=== PATIENT | female | born 1980 | race Caucasian/White ===

== ENCOUNTER 2022-05-01 15:47 | Outpatient (CLI) | payer OTHER, SELFPAY ==
[2022-05-01 19:13] LABS: HIV 1/2/P24 Combo Screen* Negative (Negative)
[2022-05-01 20:01] LABS: Chlamydia DNA Amplified* NOT DETECTED (No Detected); GC DNA Amplified* NOT DETECTED (No Detected)
[2022-05-03 23:48] LABS: Rapid Plasma Reagin (RPR) Non Reactive (Non Reactive)
== END 2022-05-01 15:48 | disposition home or self-care (01) ==
PROVIDERS: PCP Internal Medicine; Visit Provider Internal Medicine
DX: Z11.3 Encounter for screening for infections with a predominantly sexual mode of transmission (principal)
CPT/HCPCS: 86592; 86703; 87491; 87591

== ENCOUNTER 2022-05-10 08:57 | Outpatient (CLI) | payer OTHER, SELFPAY ==
--- NOTE | 2022-05-10 09:00 | CRLHL7_ITS ---
For Patients: As a result of the Century Cures Act, medical imaging exams and procedure reports are released immediately into your electronic medical record. You may view this report before your referring provider. If you have questions, please contact your health care provider. INDICATION: Left facial swelling. Left facial asymmetry. TECHNIQUE: CT of the face without contrast. Coronal reconstructions are included. COMPARISON: None. FINDINGS: No acute osseous abnormalities. Moderate right maxillary sinus mucosal thickening. High-grade left maxillary sinus mucosal thickening and air-fluid level. Obstruction of the bilateral maxillary sinus ostia. Remaining paranasal sinuses are well aerated. Moderate leftward anterior nasal septal deviation and septal spur. No obstructive lesion within the nasal cavity. No mass or other soft tissue lesion within the imaged facial/scalp regions. Small well corticated ossicle within the subcutaneous soft tissues overlying the left temporalis muscle, series 3 slice 108. The orbital contents including the globes and extraocular muscles are normal in appearance. The imaged intracranial contents are within normal limits. IMPRESSION: 1. No mass or lymphadenopathy within the neck. No acute osseous abnormalities. 2. Small well corticated ossicle within the subcutaneous soft tissues overlying the left temporalis muscle. This could reflect heterotopic ossification from prior trauma or a phlebolith associated with a vascular structure. 3. Left greater than right maxillary sinus opacification with obstruction of both maxillary sinus ostia. Correlate for clinical symptoms of sinusitis. Please note that all CT scans at this facility use dose modulation, iterative reconstruction, and/or weight-based dosing when appropriate to reduce radiation dose to as low as reasonably achievable. Dictated by Richard Blackwell MD @ 05/10/2022 3:52:53 PM (Electronically Signed)
== END 2022-05-10 08:58 | disposition home or self-care (01) ==
LOC: CT 08:58
PROVIDERS: PCP Internal Medicine; Visit Provider Internal Medicine
DX: R22.0 Localized swelling, mass and lump, head (principal); J32.0 Chronic maxillary sinusitis
CPT/HCPCS: 70486

== ENCOUNTER 2023-11-27 15:07 | Outpatient (CLI) | payer BC, SELFPAY ==
--- OUTSIDE RECORDS SUMMARY | 2023-11-27 15:09 | XMS_ITS | Clinical Summary ---
Author Organization [facility] Address [place], [place] [address] Care Team Providers Care Operations Officer Name Role Phone Unavailable Primary Care Provider Unavailabl e Allergies Active Allergy Reactions Criticality Noted Date Comments Cefazolin 07/08/2007 Codeine 09/06/2007 Sick to stomach Medications No known medications Active Problems Problem Noted Date Diagnosed Date Trigger thumb of right hand 09/07/2014 Immunizations Name Administration Dates Next Due Td (Age >=7 Years) 10/09/2005 Family History Medical History Relation Name Comments Hyperlipidemia Father Good Health Mother Cancer-breast Other No family hx Cancer-colon Other No family hx Diabetes Paternal Grandfather Relation Name Status Comments Father Mother Other Paternal Grandfather Social History Tobacco Use Types Packs/Day Years Used Date Smoking Tobacco: Never Smokeless Tobacco: Never Tobacco Cessation:Counseling Given: Yes Alcohol Use Standard Drinks/Week Comments No 0 (1 standard drink = 0.6 oz pur e alcohol) Sex and Gender Information Value Date Recorded Sex Assigned at Not on file Gender Identity Not on file Sexual Orientation Not on file Obstetrics History Last Filed Vital Signs Vital Sign Reading Time Taken Comments Blood Pressure 116/71 01/06/2015 6:57 PM CDT Pulse 104 01/06/2015 6:57 PM CDT Temperature 36 ??C (96.8 ??F) 01/06/2015 6:57 PM CDT Respiratory Rate - - Oxygen Saturation 99% 01/06/2015 6:57 PM CDT Inhaled Oxygen Concentration - - Weight 62.9 kg (138 lb 9.6 oz) 01/06/2015 6:57 P M CDT Height 162.6 cm (5' 4.02) 10/23/2014 12:01 PM C DT Body Mass Index 23.78 10/23/2014 12:01 PM CDT Plan of Treatment Health Maintenance Due Date Last Done Comments Tdap 01/15/1992 Depression screening for age 12+ 1993 HIV for age 15-65 01/15/1996 BMI (ht and wt on same day) for age 18+ 1999 Hepatitis C screening for age 18-79 1999 Tetanus booster 10/10/2015 10/09/2005 COVID-19 vaccine series (2022-24 season) 2023 Influenza for age 9-49 02/10/2024 Pap test for age 21-65 06/26/2025 3, 06/26/2022, 07/20/2016, Additional history exists Pneumococcal series for age 6-64 Aged Out No longer eligible based on patient's age to complete this topic Procedures Procedure Name Priority Date/Time Associated Diagnosis Comments HPV THIN PREP Routine 06/26/2022 4:00 PM SLAB INSTALLER from Last 3 Months or Most Recently Relevant to Health Maintenance Results * HPV HIGH RISK (06/26/2022 4:00 PM SLAB INSTALLER) TYPE 16 Negative Negative 06/29/2022 4:58 PM SLAB INSTALLER [facility] TYPE 18 Negative Negative 06/29/2022 4:58 PM SLAB INSTALLER [facility] OTHER HIGH RISK TYPES Negative Negative 06/29/2022 4:58 PM SLAB INSTALLER [facility] Other (Cervical) 06/26/2022 4:00 PM SLAB INSTALLER 06/28/2022 9:35 AM SLAB INSTALLER Narrative [facility] - 06/29/2022 4:58 PM SLAB INSTALLER HPV types 16, 18, 31, 33, 35, 39, 45, 51, 52, 56, 58, 59, 66 and 68 DNA were undetectable or below the pre-set threshold. Methodology: Abimael Di 4800 HPV Test September Junito [facility] [address] [place] [address], from Last 3 Months or Most Recently Relevant to Health Maintenance
--- NOTE | 2023-11-27 15:20 | CRLHL7_ITS ---
For Patients: As a result of the Century Cures Act, medical imaging exams and procedure reports are released immediately into your electronic medical record. You may view this report before your referring provider. If you have questions, please contact your health care provider. BILATERAL DIGITAL SCREENING MAMMOGRAM WITH COMPUTER-AIDED DETECTION AND TOMOSYNTHESIS CLINICAL HISTORY: Routine screening exam. COMPARISON: 08/02/2021. TECHNIQUE: Digital mammogram in CC and MLO projections including computer-aided detection (CAD). Tomosynthesis was used in this interpretation. BREAST COMPOSITION: The breasts are heterogeneously dense, which may obscure small masses. FINDINGS: RIGHT Breast: Nodular density in the upper outer quadrant 6 cm from the nipple, probable cyst. LEFT Breast: No suspicious findings. IMPRESSION: RIGHT breast asymmetry/mass. RECOMMENDATIONS: Additional mammographic views of the RIGHT breast including 3D spot compression CC/MLO. RIGHT breast ultrasound may also be required. BI-RADS Category 0: Incomplete: Need Additional Imaging Evaluation and/or Prior Mammograms for Comparison [facility] will contact the patient for follow-up. A lay language report of this examination will be provided to the patient. Dictated by Raul Small MD @ 11/28/2023 12:58:30 PM dora/Dictated by: Raul Small MD @ 11/28/2023 12:58:00 PM (Electronically Signed)
== END 2023-11-27 15:08 | disposition home or self-care (01) ==
LOC: MAMMO 15:08
PROVIDERS: PCP Internal Medicine; Visit Provider Internal Medicine
DX: Z12.31 Encounter for screening mammogram for malignant neoplasm of breast (principal); N63.10 Unspecified lump in the right breast, unspecified quadrant; R92.2 Inconclusive mammogram
CPT/HCPCS: 77063; 77067

== ENCOUNTER 2023-12-10 08:45 | Outpatient (CLI) | payer BC, SELFPAY ==
--- NOTE | 2023-12-10 08:45 | CRLHL7_ITS ---
For Patients: As a result of the Cures Act, medical imaging exams and procedure reports are released immediately into your electronic medical record. You may view this report before your referring provider. If you have questions, please contact your health care provider. DIGITAL DIAGNOSTIC RIGHT MAMMOGRAM PERFORMED WITH TOMOSYNTHESIS AND COMPUTER-AIDED DETECTION RIGHT BREAST ULTRASOUND CLINICAL HISTORY: RIGHT breast mass/asymmetry. COMPARISON: 08/02/2021, 11/27/2023. TECHNIQUE: Digital RIGHT mammogram in two projections with computer-aided detection. Tomosynthesis was used in this interpretation. Real-time ultrasound imaging of RIGHT breast with imaging documentation. BREAST COMPOSITION: The breast is heterogeneously dense, which may obscure small masses. FINDINGS: 3D spot compression CC/MLO RIGHT breast mammogram images submitted. Persistent nodular density within the upper outer quadrant. No architectural distortion. No suspicious calcifications. Targeted RIGHT breast ultrasound performed at 10 o`clock 6 cm from the nipple. Simple anechoic cyst is present at mid depth measuring 17 x 9 x 16 millimeters. IMPRESSION: Simple cyst RIGHT breast 10 o`clock 6 cm from the nipple measuring 1.7 cm. No suspicious findings. RECOMMENDATIONS: Annual BILATERAL screening mammography. Results and recommendations discussed with the patient. BI-RADS Category 2: Benign A lay language report of this examination will be provided to the patient. Dictated by Raul Small MD @ 12/10/2023 9:36:13 AM /Dictated by: Raul Small MD @ 12/10/2023 9:36:00 AM (Electronically Signed)
--- OUTSIDE RECORDS SUMMARY | 2023-12-10 08:47 | XMS_ITS | Clinical Summary ---
Author Organization [employer] [facility] Address [place], [place] [address] Care Team Providers Care Biomedical Instrument Technician Name Role Phone Unavailable Primary Care Provider [...] HPV THIN PREP Routine 06/26/2022 4:00 PM BOLOGNA MAKER from Last 3 Months or Most Recently Relevant to Health Maintenance Results * HPV HIGH RISK (06/26/2022 4:00 PM BOLOGNA MAKER) TYPE 16 Negative Negative 06/29/2022 4:58 PM BOLOGNA MAKER [facility] TYPE 18 Negative Negative 06/29/2022 4:58 PM BOLOGNA MAKER [facility] OTHER HIGH RISK TYPES Negative Negative 06/29/2022 4:58 PM BOLOGNA MAKER [facility] Other (Cervical) 06/26/2022 4:00 PM BOLOGNA MAKER 06/28/2022 9:35 AM BOLOGNA MAKER Narrative [facility] - 06/29/2022 4:58 PM BOLOGNA MAKER HPV types 16, 18, 31, 33, 35, 39, 45, 51, 52, 56, 58, 59, 66 and 68 DNA were undetectable or below the pre-set threshold. Methodology: Abimael Di 4800 HPV Test September Junito [facility] [address] [place] [address], from Last 3 Months or Most Recently Relevant to Health Maintenance
--- NOTE | 2023-12-10 09:15 | CRLHL7_ITS ---
For Patients: As a result of the Cures Act, medical imaging exams and procedure reports are released immediately into your electronic medical record. You may view this report before your referring provider. If you have questions, please contact your health care provider. PLEASE SEE DIGITAL DIAGNOSTIC RIGHT MAMMOGRAM PERFORMED SAME DAY CRL:[email or web address] john/Dictated by: Raul Small MD @ 12/10/2023 9:36:00 AM (Electronically Signed)
== END 2023-12-10 08:46 | disposition home or self-care (01) ==
LOC: MAMMO 08:45
PROVIDERS: PCP Internal Medicine; Visit Provider Internal Medicine
DX: N63.10 Unspecified lump in the right breast, unspecified quadrant (principal); N60.01 Solitary cyst of right breast; R92.8 Other abnormal and inconclusive findings on diagnostic imaging of breast
CPT/HCPCS: 76642; 77065; G0279